=== PATIENT | male | born 1940 | race Caucasian/White ===

== ENCOUNTER 2021-11-16 09:43 | Emergency (ER) | payer MEDICARE, BC, SELFPAY ==
[2021-11-16 10:00] VITALS: BP 154/81; PULSE 72; RESP 18; TEMP 36.6; O2SAT 95; BMI 35.5
[2021-11-16 10:11] LABS: Appearance Urine Clear (Clear); Bilirubin Urine Negative (Negative); Blood Urine 3+ (Negative); Color Urine Yellow (Yellow); Glucose Urine Negative (Negative); Ketones Urine Negative (Negative); Leukocyte Esterase Urine 1+ (Negative); Nitrite Urine Negative (Negative); Protein Urine 1+ (Negative); Urobilinogen Urine 0.2 (0.2-1.0)
--- NOTE | 2021-11-16 10:33 | ED.MALEGU ---
HPI - Male Genitourinary General Chief complaint: Urogenital Problems, Male Stated complaint: Possible UTI Time Seen by Provider: 11/16/21 10:02 History of Present Illness HPI Narrative: 81yo male patient with h/o hypothyroidism, HTN, and CAD presents to the emergency department with 2 days of burning with urination, hematuria, and decreased volumes. Will he reports some associated pain at the end of voiding in his lower abdomen that is not reproducible with palpation. The patient denies history of frequent or recurrent urinary tract infections. He reports his last similar symptom was greater than 1 year prior. Patient denies any prostate related concerns complaints. The patient denies any constipation, abdominal pain, or nausea. Which he denies fever, chills, or sweats. He denies CVA tenderness bilaterally. Related Data Home Medications Medication Instructions Recorded Confirmed atorvastatin 10 mg tablet mg 11/16/21 clopidogrel 75 mg tablet mg 11/16/21 levothyroxine 88 mcg tablet mcg 11/16/21 lisinopril 10 mg tablet mg 11/16/21 Previous Rx's Medication Instructions Recorded cephalexin 500 mg capsule 500 mg PO Q8H #15 cap 11/16/21 Allergies Allergy/AdvReac Type Severity Reaction Status Date / Time No Known Drug Allergies Allergy Verified 11/16/21 10:00 Review of Systems Const: Denies: fever, chills, fatigue or malaise Cardio: Denies: chest pain, palpitations or shortness of breath with exertion Resp: Denies: shortness of breath or cough GI: Denies: abdominal pain, nausea, vomiting, diarrhea, constipation or bloating : Reports: painful urination, urinary frequency, urinary urgency, blood in urine and decreased urine ouput; Denies: penile discharge, change in urine stream, urinary hesitancy or urinary dribbling Integ/Breast: Denies: rash, itching or redness Endo: Denies: fatigue PFS PFS Medical History (Updated 11/16/21 @ 11:34 by Criselda Franklin DO) History of CVA (cerebrovascular accident) Family History (Updated 11/16/21 @ 10:53 by Criselda Franklin DO) Other Dementia Diabetes Social History Smoking Status: Never smoker Do you use any of these nicotine containing products: None How often do you have a drink containing alcohol: monthly or less How often do you have six or more drinks on one occasion: Never AUDIT-C Alcohol total score: 1 Non-prescribed substance use: denies use Exam Const: Vital Signs, click to edit/add: Vital Signs - 24 hr 11/16/21 10:00 Temperature 97.9 F Pulse Rate [Right Pulse Oximeter] 72 Respiratory Rate 18 Blood Pressure [Le ft Upper Arm] 154/81 H Pulse Oximetry 95 Documenting provider has reviewed patient's vital signs: yes Common normals: no apparent distress, oriented x3, no limitations, healthy appearing, alert and well nourished General appearance: cooperative, comfortable, well kempt and well developed; not in distress Nutritional appearance: obese Orientation/consciousness: Yes awake, Yes oriented to person, Yes oriented to place and Yes oriented to time Resp: Common normals: normal respiratory effort, no retractions, no use of accessory muscles and clear to auscultation bilaterally Effort & inspection: able to speak in complete sentences Auscultation: clear to auscultation bilaterally Cardio: Common normals: regular rate, regular rhythm, S1 normal heart sound, S2 normal heart sound, no gallops, no clicks and no murmurs Rate: regular rate Rhythm: regular rhythm Heart sounds: S1 normal and S2 normal GI: Common normals: Normal to inspection, nondistended, normoactive bowel sounds present (protuberant/obese) and soft to palpation Palpation: soft; non-tender : Common normals: no CVA tenderness Bladder/kidney exam: no CVA tenderness Back & Pelvis: Common normals: no CVA tenderness Extremity: Common normals: normal to inspection and full ROM Neuro: Common normals: oriented x3 Sensorium/orientation: awake, alert, oriented to person, oriented to place and oriented to time Psych: Appearance: grossly normal and well kempt Skin: Common normals: no rashes or lesions noted General skin exam: no rashes or lesions noted Course Vital Signs Vital signs: Initial Vital Signs Temperature 97.9 F 11/16/21 10:00 Temperature Source Temporal Artery Scan 11/16/21 10:00 Pulse Rate 72 11/16/21 10:00 Respiratory Rate 18 11/16/21 10:00 Blood Pressure 154/81 H 11/16/21 10:00 Blood Pressure Mean 105 11/16/21 10:00 Blood Pressure Position Sitting 11/16/21 10:00 Pulse Oximetry 95 11/16/21 10:00 Oxygen Delivery Method 11/16/21 10:00 Vital Signs Temperature 97.9 F 11/16/21 10:00 Pulse Rate 72 11/16/21 10:00 Respiratory Rate 18 11/16/21 10:00 Blood Pressure 154/81 H 11/16/21 10:00 Pulse Oximetry 95 11/16/21 10:00 Temperature 97.9 F 11/16/21 10:00 Pulse Rate 72 11/16/21 10:00 Respiratory Rate 18 11/16/21 10:00 Blood Pressure 154/81 H 11/16/21 10:00 Pulse Oximetry 95 11/16/21 10:00 MDM - Male Genitourinary MDM Narrative Medical decision making narrative: Kvng is an 81-year-old male patient presents emergency department with classic symptoms for JOSE CARLOS. The patient has had his urine taken for sample. In addition, labs were ordered, but haven't been drawn. Patient reports improvement in his initial presenting symptoms and now defers additional testing. Discussed limitations in work-up and need to return for reevaluation if symptoms do not improve with treatment. Patient's vital signs remained stable, and he is planned for discharge. Differential Diagnosis Differential diagnosis: Likely urinary tract infection, urethritis and prostatitis Medical Records Attestation: I reviewed the patient's medical records. Lab Data Attestation: I reviewed the patient's lab results. Labs: Lab Results 11/16/21 Range/Units 10:00 Urine Color Yellow (Yellow) Urine Appearance Clear (Clear) Urine pH 6.0 (5.0-8.5) Ur Specific [place] 1.010 (1.000-1.030) Urine Protein 1+ A (Negative) Urine Glucose (UA) Negative (Negative) Urine Ketones Negative (Negative) Urine Blood 3+ A (Negative) Urine Nitrite Negative (Negative) Urine Bilirubin Negative (Negative) Urine Urobilinogen 0.2 (0.2-1.0) Ur Leukocyte Esterase 1+ A (Negative) Urine RBC 50-100 A (0-2) Urine WBC >100 A (0-5) Ur Squamous Epith Cells Few (None-Few) Urine Bacteria Many A (None) Discharge Plan Discharge Clinical Impression: Urinary tract infection Patient Disposition: Home, Self-Care Condition: Improved Instructions: Urinary Tract Infection in Men (ED) Additional Instructions: Thank you for choosing [facility] for your care today. Wear loose fitted pants with cotton underwear. Allow perineum to air as tolerated, (ex. nothing at bedtime). Take antibiotic as prescribed. See orders. Consider cranberry juice or cranberry supplement to assist with symptom control and recurrent UTIs. Consider OTC AZO or Urogesic Blue to assist with symptoms. I recommend calling primary care for follow-up in the next 7-10 days. If new or worsening symptoms develop or you have any concerns in the meantime, please call your primary care clinic or return to the ER for re-evaluation. Activity Level: No Restrictions and Activity as Tolerated Discharge Diet: Heart Healthy (2 gm sodium, low fat) Prescriptions: New cephalexin 500 mg capsule 500 mg PO Q8H Qty: 15 0RF No Action atorvastatin 10 mg tablet 0RF Label Comments: TAKE 1 TABLET BY MOUTH EVERY DAY clopidogrel 75 mg tablet 0RF Label Comments: TAKE 1 TABLET BY MOUTH ONCE DAILY. levothyroxine 88 mcg tablet 0RF Label Comments: TAKE 1 TABLET BY MOUTH EVERY DAY lisinopril 10 mg tablet 0RF Label Comments: TAKE 1 TABLET BY MOUTH EVERY DAY Follow Up/Referrals: Provider,Not a Local [Primary Care Provider] - Stand Alone Forms: [employer] Info Instructions
[2021-11-16 11:00] LABS: Bacteria Urine Many; RBC Urine 50-100 (0-2); Squamous Epithelial Cell Urine Few (None-Few); WBC Urine >100 (0-5)
== END 2021-11-16 11:56 | disposition home or self-care (01) ==
PROVIDERS: Emergency Provider Family Medicine
DX: N39.0 Urinary tract infection, site not specified (principal)
CPT/HCPCS: 80048; 81001; 85025; 87086; 87186; 99282; 99283; 99284

== ENCOUNTER 2022-12-11 04:02 | Emergency (ER) | payer MEDICARE, BC, SELFPAY ==
[2022-12-11 04:18] VITALS: BP 174/77; PULSE 87; RESP 16; TEMP 36.6; O2SAT 98; BMI 31.2
--- NOTE | 2022-12-11 04:34 | ED.GENADULT ---
HPI - General Adult General Time Seen by Provider: 04:34 Date Seen: 12/11/22 Chief complaint: Extremity Pain/Injury, Lower Stated complaint: right leg numbness Time Seen by Provider: 12/11/22 04:06 Source: patient Mode of arrival: ambulatory Limitations: no limitations History of Present Illness HPI narrative: Patient is an 82-year-old male history of hypothyroidism, obstructive sleep apnea, TIA 45 years ago presenting to the emergency department for right leg numbness. He states around noon started having numbness to the anterior portion was right leg going from his right hip down to his foot. States it is only on the anterior portion of the leg. Denies any numbness to the sides or the back of the leg. Also has some mild low back pain and right hip pain that he states feels like morning stiffness. States the numbness started before the pain. Denies any bladder incontinence or retention, saddle anesthesia, fevers, chills. States his previous TIA he he had somewhat similar right leg numbness but also his right arm numbness and slurred speech. He states this feels different compared to that. He is having an achiness to his right thigh blood was keeping him up at night and that is why he came into the emergency department. He denies any history of blood clots. He notes his right leg has not had any swelling. Denies weakness, chest pain, shortness of breath, headache, vision changes, lightheadedness, dizziness, ataxia, hearing changes. Related Data Home Medications Medication Instructions Recorded Confirmed atorvastatin 10 mg tablet mg 11/16/21 clopidogrel 75 mg tablet mg 11/16/21 levothyroxine 88 mcg tablet mcg 11/16/21 lisinopril 10 mg tablet mg 11/16/21 Previous Rx's Medication Instructions Recorded cephalexin 500 mg capsule 500 mg PO Q8H #15 caps 11/16/21 Allergies Allergy/AdvReac Type Severity Reaction Status Date / Time No Known Drug Allergies Allergy Verified 11/16/21 10:00 Review of Systems Status of ROS: Reports: 10 or more systems reviewed and unremarkable except as noted in History and below [facility] Medical History (Updated 12/11/22 @ 05:39 by Eron Morton DO) History of CVA (cerebrovascular accident) ?Z86.73 - Personal history of transient ischemic attack (TIA), and cerebral infarction without residual deficits (ICD-10) Family History (Updated 11/16/21 @ 10:53 by Criselda Franklin DO) Other Dementia Diabetes Social History Smoking Status: Never smoker Do you use any of these nicotine containing products: None How often do you have a drink containing alcohol: monthly or less How often do you have six or more drinks on one occasion: Never AUDIT-C Alcohol total score: 1 Non-prescribed substance use: denies use Exam Narrative: Exam Narrative: Const: Well-nourished, Well-developed, in mild distress Eyes: PERRL, no conjunctival injection, and symmetrical lids ENMT: Atraumatic external nose and ears. Moist mucous membranes. Neck: Symmetric, trachea midline, No thyromegaly. CVS: RRR, No murmurs or gallops. Peripheral pulses 2+ and equal in all extremities RESP: Unlabored respiratory effort. Clear to auscultation bilaterally. GI: Nontender/Nondistended, No rebound or guarding. MSK:Extremities w/o deformity, Normal Active ROM Skin: Warm, Dry. No rashes or lesions. Neuro: Normal Muscle tone, Cranial nerves 2-12 grossly intact, normal [id number], normal [id number], normal gait, normal strength 5/5 upper lower extremities bilaterally, decreased sensation to the anterior portion of the right leg [place] sensation in other extremities, normal rapid alternating movements. Psych: Awake, Alert, & Oriented x3. Appropriate mood and affect. Const: Vital Signs, click to edit/add: Vital Signs - 24 hr 12/11/22 04:18 Temperature 97.9 F Pulse Rate [Left P ulse Oximeter] 87 Respiratory Rate 16 Blood Pressure [Ri ght Upper Arm] 174/77 H Pulse Oximetry 98 Oxygen Delivery Me thod Room Air Course Vital Signs Vital signs: Initial Vital Signs Temperature 97.9 F 12/11/22 04:18 Temperature Source Temporal Artery Scan 12/11/22 04:18 Pulse Rate 87 12/11/22 04:18 Respiratory Rate 16 12/11/22 04:18 Blood Pressure 174/77 H 12/11/22 04:18 Blood Pressure Mean 109 H 12/11/22 04:18 Blood Pressure Position Sitting 12/11/22 04:18 Pulse Oximetry 98 12/11/22 04:18 Oxygen Delivery Method Room Air 12/11/22 04:18 Vital Signs Temperature 97.9 F 12/11/22 04:18 Pulse Rate 87 12/11/22 04:18 Respiratory Rate 16 12/11/22 04:18 Blood Pressure 174/77 H 12/11/22 04:18 Pulse Oximetry 98 12/11/22 04:18 Oxygen Delivery Method Room Air 12/11/22 04:18 Temperature 97.9 F 12/11/22 04:18 Pulse Rate 87 12/11/22 04:18 Respiratory Rate 16 12/11/22 04:18 Blood Pressure 174/77 H 12/11/22 04:18 Pulse Oximetry 98 12/11/22 04:18 Oxygen Delivery Method Room Air 12/11/22 04:18 Medical Decision Making MDM Narrative Medical decision making narrative: Patient is an 82-year-old male presenting for right leg numbness. His own in the anterior aspect of the right leg. Appears to follow a dermatome. He is also having associated back/hip/thigh pain that started after the numbness. He states he had numbness sort of similar in the past but at that time also had right arm numbness and slurred speech and had a TIA. He is not on any anticoagulants and has no known arrhythmias. No signs of blood clots at this time in that leg. The right legs actually smaller compared to the left leg. One hundred notably this is a T&A for DVT at this time. Most likely it is a radiculopathy causing the symptoms. Patient was offered Toradol for pain but states he can take it because he is getting cataract surgery in 2 days and was told not have any NSAIDs for 48 hours. A small dose of morphine was given for the right leg discomfort. Patient be discharged home they agree to this plan. Patient was given strict return precautions if he develops any focal neurological changes Discharge Plan Discharge Clinical Impression: Numbness Radiculopathy Qualifiers: Spinal region: unspecified Qualified Code(s): M54.10 - Radiculopathy, site unspecified Patient Disposition: Home, Self-Care Condition: Stable Instructions: Paresthesia (ED) Additional Instructions: Follow-up with the primary care provider. Return for new or worsening symptoms. If he develops any worsening numbness, or in developing weakness or other neurological issues please return to the emergency department immediately Prescriptions: No Action atorvastatin 10 mg tablet Patient Comments: TAKE 1 TABLET BY MOUTH EVERY DAY clopidogrel 75 mg tablet Patient Comments: TAKE 1 TABLET BY MOUTH ONCE DAILY. levothyroxine 88 mcg tablet Patient Comments: TAKE 1 TABLET BY MOUTH EVERY DAY lisinopril 10 mg tablet Patient Comments: TAKE 1 TABLET BY MOUTH EVERY DAY cephalexin 500 mg capsule 500 mg PO Q8H Qty: 15 0RF Follow Up/Referrals: Provider,Not a Local [Referring] - Stand Alone Forms: [facility] Info Instructions
[2022-12-11] MEDS: MORPHINE 4 MG/ML INJ 2 MG IM (05:37)
== END 2022-12-11 05:58 | disposition home or self-care (01) ==
PROVIDERS: Emergency Provider Student in an Organized Health Care Education/Training Program; PCP Family Medicine
DX: R20.0 Anesthesia of skin (principal); M54.10 Radiculopathy, site unspecified
CPT/HCPCS: 96372; 99282; 99283; J2270

== ENCOUNTER 2022-12-12 09:44 | Day surgery (SDC) | payer MEDICARE, BC, SELFPAY ==
[2022-12-12] MEDS: TETRACAINE 0.5% OPHTH 1 DROP EYE-LEFT ×2 (10:00→10:05)
[2022-12-12] MEDS: KETOROLAC OPHTH 0.5% 1 DROP EYE-LEFT ×3 (10:00→10:10)
[2022-12-12 10:09] VITALS: BP 167/79; PULSE 44; RESP 16; TEMP 36.3; O2SAT 98
--- NOTE | 2022-12-12 10:09 | W.ANESCHARGE ---
Anesthesia Charges Start Date/Time Anesthesia Start Date: 12/12/22 Anesthesia Start Time: 10:35 Stop Date/Time Anesthesia Stop Date: 12/12/22 Anesthesia Stop Time: 11:11 Summary Extremes of Age - Over 70 or under 1: MDA
[2022-12-12 10:10] VITALS: BMI 36.3
[2022-12-12] MEDS: SODIUM CHLORIDE 0.9 % (FLUSH) 10 ML SYRINGE IVF (10:24)
--- NOTE | 2022-12-12 10:28 | SUR.PREOP ---
The eye drops brought by the patient (Ketorolac and Prednisolone) are examined and I have determined they are labeled by the patient's pharmacy for this patient as prescribed by the surgeon. The bottles are intact, recently obtained and appear to be correct.jaydon davidson
[2022-12-12] MEDS: TETRACAINE 0.5% OPHTH 2 DROP EYE-LEFT (10:38)
--- NOTE | 2022-12-12 10:39 | W.ANESCHARGE ---
Anesthesia Charges Start Date/Time Anesthesia Start Date: 12/12/22 Anesthesia Start Time: 10:35 Stop Date/Time Anesthesia Stop Date: 12/12/22 Anesthesia Stop Time: 11:11 Summary Extremes of Age - Over 70 or under 1: OPERATIONS SUPPORT COORDINATOR
[2022-12-12] MEDS: BALANCED SALT IRRIG SOLN 15 ML EYE-LEFT (10:43)
[2022-12-12 11:22] VITALS: BP 156/75; PULSE 45; RESP 16; TEMP 36.6; O2SAT 98
--- NOTE | 2022-12-12 11:36 | SUR.PHASEII ---
The eye drops brought by the patient (Ketorolac and Prednisolone) are examined and I have determined they are labeled by the patient's pharmacy for this patient as prescribed by the surgeon. The bottles are intact, recently obtained and appear to be correct.
--- NOTE | 2022-12-12 12:02 | P.OPTPRC_ITS ---
Procedure Note Date of procedure: 12/12/22 Will [facility] bill your pro fee for this procedure?: Yes Procedure Description: SURGEON: Omayra Craven MD PREOPERATIVE DIAGNOSIS: Nuclear sclerotic cataract, left eye. POSTOPERATIVE DIAGNOSIS: Nuclear sclerotic cataract, left eye. NAME OF OPERATION: Phacoemulsification of cataract with posterior chamber intraocular lens implantation in the left eye. ANESTHESIA: Topical. ESTIMATED BLOOD LOSS: Less than 2 cc. COMPLICATIONS: None. PATHOLOGY SPECIMEN: None. INDICATIONS: See consult note for details. The risks, benefits and alternatives of the procedure were explained to the patient, who elected to proceed and sign ed informed consent to do so. PROCEDURE: The patient was brought to the pre-holding area where the left eye was identified as the operative eye. I placed my initials above this eye. The patient received eye drops consisting of 0.5% tetracaine, 1% tropicamide, 10% phenylephrine, and 0.5% ketorolac. The patient was then brought to the operating room where the left eye was again identified as the operative eye. The eye was prepped with Betadine and draped in the usual sterile ophthalmic fashion. A #15 super-sharp blade was used to create a paracentesis site. 1% non-preserved intracameral lidocaine was injected into the anterior chamber. Endocoat was injected into the anterior chamber. A 2.4 mm keratome was used to create a three-plane self-sealing incision 1 mm anterior to the temporal limbus. A cystotome was used to create an anterior capsular leaflet. The Utrata forceps were used to extend this to form a continuous curvilinear capsulorrhexis. Hydrodissection was performed. There was mild iris prolapse at the incision that resolved without need for repositioning.The cataract was removed with phacoemulsification using the [id number] technique. The irrigation and aspiration tip was used to remove the remaining cortex. Healon was injected into the capsular bag. An JOHN [id number] intraocular lens of 21.5 diopters was injected into the capsular bag. The irrigation and aspiration tip was used to remove the remaining viscoelastic. Balanced salt solution on a cannula was used to hydrate the wound, and the wound was found to be watertight. The pupil was noted to be round. DISPOSITION: The patient was taken to the recovery room and discharged to home in stable condition. The patient was instructed to call me or go to the emergency department with any sudden change, including dramatic loss of vision, severe pain in the eye or eyebrow region, nausea, or vomiting. The patient will follow up in the clinic tomorrow morning.
== END 2022-12-12 11:36 | disposition home or self-care (01) ==
LOC: OR 09:46
PROVIDERS: PCP Family Medicine; Visit Provider Ophthalmology
PROC: (CPT 66984; principal; 2022-12-12 09:45)
DX: H25.12 Age-related nuclear cataract, left eye (principal)
CPT/HCPCS: 66984; 142; 99100; A9270; J2250; J3010; V2632

== ENCOUNTER 2022-12-26 07:27 | Day surgery (SDC) | payer MEDICARE, BC, SELFPAY ==
[2022-12-26] MEDS: KETOROLAC OPHTH 0.5% 1 DROP EYE-RIGHT ×3 (07:30→07:40)
[2022-12-26] MEDS: TETRACAINE 0.5% OPHTH 1 DROP EYE-RIGHT ×2 (07:30→07:35)
--- NOTE | 2022-12-26 07:42 | SUR.PREOP ---
The eye drops brought by the patient (Ketorolac, Oflaxacin and Prednisolone) are examined and I have determined they are labeled by the patient's pharmacy for this patient as prescribed by the surgeon. The bottles are intact, recently obtained and appear to be correct.
[2022-12-26 07:44] VITALS: BP 155/82; PULSE 49; RESP 16; TEMP 36.7; O2SAT 96; BMI 34.4
[2022-12-26] MEDS: SODIUM CHLORIDE 0.9 % (FLUSH) 10 ML SYRINGE IVF (07:59)
[2022-12-26] MEDS: TETRACAINE 0.5% OPHTH 2 DROP EYE-RIGHT (08:39)
[2022-12-26] MEDS: BALANCED SALT IRRIG SOLN 15 ML EYE-RIGHT (08:43)
[2022-12-26 09:05] VITALS: BP 155/77; PULSE 43; RESP 16; TEMP 36.4; O2SAT 96
--- NOTE | 2022-12-26 09:07 | W.ANESCHARGE ---
Anesthesia Charges Start Date/Time Anesthesia Start Date: 12/26/22 Anesthesia Start Time: 08:37 Stop Date/Time Anesthesia Stop Date: 12/26/22 Anesthesia Stop Time: 09:10
--- NOTE | 2022-12-26 09:15 | W.PM.OPTPROC ---
Procedure Note Date of procedure: 12/26/22 Will [facility] bill your pro fee for this procedure?: Yes Procedure Description: SURGEON: Omayra Craven MD PREOPERATIVE DIAGNOSIS: Nuclear sclerotic cataract, right eye. POSTOPERATIVE DIAGNOSIS: Nuclear sclerotic cataract, right eye. NAME OF OPERATION: Phacoemulsification of cataract with posterior chamber intraocular lens implantation in the right eye. ANESTHESIA: Topical. ESTIMATED BLOOD LOSS: Less than 2 cc. COMPLICATIONS: None. PATHOLOGY SPECIMEN: None. INDICATIONS: See consult note for details. The risks, benefits and alternatives of the procedure were explained to the patient, who elected to proceed and signed informed consent to do so. PROCEDURE: The patient was brought to the pre-holding area where the right eye was identified as the operative eye. I placed my initials above this eye. The patient received eye drops consisting of 0.5% tetracaine, 1% tropicamide, 10% phenylephrine, and 0.5% ketorolac. The patient was then brought to the operating room where the right eye was again identified as the operative eye. The eye was prepped with Betadine and draped in the usual sterile ophthalmic fashion. A #15 super-sharp blade was used to create a paracentesis site. 1% non-preserved intracameral lidocaine was injected into the anterior chamber. Endocoat was injected into the anterior chamber. A 2.4 mm keratome was used to create a three-plane self-sealing incision 1 mm anterior to the temporal limbus. A cystotome was used to create an anterior capsular leaflet. The Utrata forceps were used to extend this to form a continuous curvilinear capsulorrhexis. Hydrodissection was performed. The cataract was removed with phacoemulsification using the [id number] technique. The irrigation and aspiration tip was used to remove the remaining cortex. Healon was injected into the capsular bag. An JOHN [id number] intraocular lens of 23.0 diopters was injected into the capsular bag. The irrigation and aspiration tip was used to remove the remaining viscoelastic. Balanced salt solution on a cannula was used to hydrate the wound, and the wound was found to be watertight. The pupil was noted to be round. DISPOSITION: The patient was taken to the recovery room and discharged to home in stable condition. The patient was instructed to call me or go to the emergency department with any sudden change, including dramatic loss of vision, severe pain in the eye or eyebrow region, nausea, or vomiting. The patient will follow up in the clinic tomorrow morning.
== END 2022-12-26 09:44 | disposition home or self-care (01) ==
PROVIDERS: PCP Family Medicine; Visit Provider Ophthalmology
PROC: (CPT 66984; principal; 2022-12-26 07:30)
DX: H25.11 Age-related nuclear cataract, right eye (principal)
CPT/HCPCS: 66984; 00142; A9270; J2250; J3010; V2632

== ENCOUNTER 2023-11-23 09:43 | Emergency (ER) | payer MEDICARE, BC, SELFPAY ==
[2023-11-23 09:46] VITALS: BP 143/67; PULSE 63; RESP 18; TEMP 36.6; O2SAT 96; BMI 33.0
--- NOTE | 2023-11-23 10:04 | ED_ITS ---
HPI - General Adult General Chief complaint: Fall/Minor Trauma Stated complaint: bad fall, left arm injured, shoulder pain/knee Time Seen by Provider: 11/23/23 09:47 History of Present Illness HPI narrative: Pt had a fall last night in front of a restaurant, lost balance. Abrasion to lower left arm. Bystander helped bandage him up. Hit his left shoulder, ROM intact. Bumped head. No LOC. Swelling in right knee from previous fall. Pt is on Plavix. States he recently had his blood pressure medication changed, and has been more off balance since, has fallen more frequently. Pt ambulated into the ER. 83-year-old man presenting to the emergency department after recent falls. Did fall last night at a restaurant reporting losing his balance. Bumped his head in this fall. He is thinking that maybe it has become more unsteady with recent changes of medication. He feels that overall has been more unsteady lately. Does have some swelling in his right knee reported but this is not from this most recent fall. Has in this latest fall also sustained abrasion to his left arm. No nausea. No particular headache. No neck or back pain. No chest pain shortness of breath or sensation of heart arrhythmia the does have a history of paroxysmal supraventricular tachycardia. Does take Plavix with history of CVA. Was ambulatory into this emergency department. Related Data Home Medications ?Medication ?Instructions ?Recorded ?Confirmed atorvastatin 10 mg tablet 10 mg PO DAILY 11/16/21 11/23/23 clopidogrel 75 mg tablet 75 mg PO DAILY 11/16/21 11/23/23 levothyroxine 88 mcg tablet 88 mcg PO DAILY 11/16/21 11/23/23 triamcinolone acetonide 0.1 % 1 applic topical TID 12/11/22 12/12/22 topical cream losartan 100 1 tab PO DAILY 11/23/23 11/23/23 mg-hydrochlorothiazide 12.5 mg tablet Allergies Allergy/AdvReac Type Severity Reaction Status Date / Time No Known Drug Allergies Allergy Verified 11/23/23 09:54 Review of Systems Status of ROS: Reports: 6 or more systems reviewed and unremarkable except as noted in History and below [facility] Medical History Paroxysmal SVT (supraventricular tachycardia) ?I47.1 - Supraventricular tachycardia (ICD-10) Stage 3a chronic kidney disease (CKD) ?N18.31 - Chronic kidney disease, stage 3a (ICD-10) Hypertension ?I10 - Essential (primary) hypertension (ICD-10) Adenomatous colon polyp ?D12.6 - Benign neoplasm of colon, unspecified (ICD-10) Eczema ?L30.9 - Dermatitis, unspecified (ICD-10) History of CVA (cerebrovascular accident) ?Z86.73 - Personal history of transient ischemic attack (TIA), and cerebral infarction without residual deficits (ICD-10) Surgical History History of arthroscopy of shoulder ?Z98.890 - Other specified postprocedural states (ICD-10) H/O hemorrhoidectomy ?Z98.890 - Other specified postprocedural states (ICD-10) Family History Other Dementia Diabetes Social History Smoking Status: Never smoker Do you use any of these nicotine containing products: None How often do you have a drink containing alcohol: monthly or less Alcohol type: beer How often do you have six or more drinks on one occasion: Never AUDIT-C Alcohol total score: 1 Non-prescribed substance use: denies use Caffeine: Yes Exam Narrative: Exam Narrative: Pleasant. NAD. Skin is warm and dry. I do not see indication of notable head injury. No swelling. Cranial nerves 2-12 intact. Neck is supple nontender. Back nontender. Is breathing easily. No pain to palpation over the clavicles. Has good range of motion in his shoulder though sore generally in his right shoulder. I do not see swelling or erythema here but he is tender somewhat over the AC joint though I do not appreciate a defect here. With further evaluation of tater cuff he is having good strength to resisted external and internal rotation. Empty can testing is what elicits most soreness. Abdomen is protuberant soft and nontender. Mild erythema over right greater than left knee. Left forearm with irregular skin tear about 4 cm in maximal diameter. There is some darkening of tissue at the edge. Const: Vital Signs, click to edit/add: Vital Signs - 24 hr 11/23/23 09:46 Temperature 97.8 F Pulse Rate [Right Pulse Oximeter] 63 Respiratory Rate 18 Blood Pressure [Ri ght Upper Arm] 143/67 H Pulse Oximetry 96 Oxygen Delivery Me thod Room Air Documenting provider has reviewed patient's vital signs: yes Course Vital Signs Vital signs: Initial Vital Signs Temperature 97.8 F 11/23/23 09:46 Temperature Source Temporal Artery Scan 11/23/23 09:46 Pulse Rate 63 11/23/23 09:46 Pulse Rhythm Regular 11/23/23 09:46 Respiratory Rate 18 11/23/23 09:46 Blood Pressure 143/67 H 11/23/23 09:46 Blood Pressure Mean 92 11/23/23 09:46 Pulse Oximetry 96 11/23/23 09:46 Oxygen Delivery Method Room Air 11/23/23 09:46 Vital Signs Temperature 97.8 F 11/23/23 09:46 Pulse Rate 63 11/23/23 09:46 Respiratory Rate 18 11/23/23 09:46 Blood Pressure 143/67 H 11/23/23 09:46 Pulse Oximetry 96 11/23/23 09:46 Oxygen Delivery Method Room Air 11/23/23 09:46 Temperature 97.8 F 11/23/23 09:46 Pulse Rate 63 11/23/23 09:46 Respiratory Rate 18 11/23/23 09:46 Blood Pressure 143/67 H 11/23/23 09:46 Pulse Oximetry 96 11/23/23 09:46 Oxygen Delivery Method Room Air 11/23/23 09:46 Medical Decision Making MDM Narrative Medical decision making narrative: We discussed potential head imaging. He describes minimal impact. Is otherwise doing well. Preference is not to do. Did do a shoulder x-ray however. Would look for avulsion injury or excessive distraction at the AC joint. Over-read by me does not reveal any acute abnormalities. Osteoarthritic changes. Radiology over-read below Technique: Left shoulder, 3 views. Comparison: None. Findings/Impression: Bones: Alignment is normal. No displaced fractures or bone lesions. Chronic changes around the greater tuberosity. Joint spaces: Moderate acromioclavicular and glenohumeral degenerative changes. Soft tissues: Unremarkable. Did return to improve placement of the skin tear. Cleansed further with Hibiclens and water solution and Shur-Clens. Trimmed away small amount of nonviable tissue. Discussed options for dressing and ultimately settled on Tegaderm. I think there is improved approximation here. I would have concerns of further worsening balance/mobility with use of an arm sling. Further he does not appear to have that significant amount of pain in the right shoulder. See patient discharge plan for further discussion Discharge Plan Discharge Clinical Impression: Shoulder sprain, Skin tear Patient Disposition: Home w/ Parent or Adult Condition: Improved Additional Instructions: Hopefully this Tegaderm can stay on at least for the majority of the week. That should give your wound some time to form some new tissue. Can trim away the edges as they peel up. Keep generally covered if you like but not critical. If comes all the way off in the next couple days, would use antibiotic ointment and nonstick Telfa pad for a few days. Watch for spreading redness after 2 days, purulent drainage, marked increase in swelling or pain. See handout for exercises for your shoulder. It seems you might have irritated your supraspinatus muscle? But I do think it is important to keep your shoulder mobile. If this isn't improved after a week, would be re-evaluated. Prescriptions: No Action atorvastatin 10 mg tablet 10 mg PO DAILY Patient Comments: TAKE 1 TABLET BY MOUTH EVERY DAY clopidogrel 75 mg tablet 75 mg PO DAILY Patient Comments: TAKE 1 TABLET BY MOUTH ONCE DAILY. levothyroxine 88 mcg tablet 88 mcg PO DAILY Patient Comments: TAKE 1 TABLET BY MOUTH EVERY DAY triamcinolone acetonide 0.1 % cream 1 applic topical TID losartan-hydrochlorothiazide 100-12.5 mg tablet 1 tab PO DAILY Follow Up/Referrals: Aria Rojas MD [Primary Care Provider] - Stand Alone Forms: [facility] Info Instructions
--- NOTE | 2023-11-23 10:37 | CRLHL7_ITS ---
For Patients: As a result of the Cures Act, medical imaging exams and procedure reports are released immediately into your electronic medical record. You may view this report before your referring provider. If you have questions, please contact your health care provider. Indication: Trauma. Technique: Left shoulder, 3 views. Comparison: None. Findings/Impression: Bones: Alignment is normal. No displaced fractures or bone lesions. Chronic changes around the greater tuberosity. Joint spaces: Moderate acromioclavicular and glenohumeral degenerative changes. Soft tissues: Unremarkable. Dictated by Oswaldo Parra MD @ 11/23/2023 11:02:39 AM (Electronically Signed)
--- OUTSIDE RECORDS SUMMARY | 2023-11-23 10:44 | XMS_ITS | Clinical Summary ---
Author Organization [facility] Address [place], [place] [address] Care Team Providers Care Audit Partner Name Role Phone Aria Rojas MD Primary Care Provider [phone] Allergies No known active allergies Medications Medication Sig Dispensed Refills Start Date End Date Status durable medical equipment (DME)Indications:E levated blood pressure reading without diagnosis of hypertension Blood pressure cuff and machine. 1 Each 03/29/2021 Active triamcinolone (ARISTOCORT; KENALOG) 0.1 % creamIndications:E czema, unspecified type APPLY TOPICALLY TO AFFECTED AREA (S) 3 TIMES A DAY 80 g 3 01/04/2023 Active cetirizine (ZYRTEC) 10 mg tablet Take 10 mg by mouth once daily. 06/08/2023 Active atorvastatin (LIPITOR) 10 mg tabletIndications: Cerebral infarction, unspecified mechanism (HC) Take 1 Tablet (10 mg) by mouth once daily. 100 Tablet 3 08/08/2023 Active clopidogreL (PLAVIX) 75 mg tabletIndications: Cerebral infarction, unspecified mechanism (HC) Take 1 Tablet (75 mg) by mouth once daily. 100 Tablet 3 08/08/2023 Active losartan-hydrochlo rothiazide (HYZAAR) 100-12.5 mg tabletIndications: Primary hypertension Take 1 Tablet by mouth once daily. 100 Tablet 3 10/11/2023 Active levothyroxine (SYNTHROID) 100 mcg tabletIndications: Hypothyroidism, unspecified type TAKE 1 TABLET BY MOUTH ONCE DAILY. 30 Tablet 11/07/2023 Active levothyroxine (SYNTHROID) 100 mcg tabletIndications: Hypothyroidism, unspecified type TAKE 1 TABLET BY MOUTH ONCE DAILY. 30 Tablet 10/07/2023 Discontinued Active Problems Problem Noted Date Diagnosed Date Atrial flutter, unspecified type 08/08/2023 Paroxysmal SVT (supraventricular tachycardia) HTN (hypertension) 11/02/2021 Stage 3a chronic kidney disease 11/02/2021 MADIE (obstructive sleep apnea) 10/06/2020 Hypothyroidism (acquired) 01/26/2016 Cerebral infarction 03/22/2015 Adenomatous colon polyp 02/02/2014 Overview: Colonoscopy 01/2014 polyp repeat in 5 years Colonoscopy 07/2020 polyp, repeat in 7 years Eczema 03/18/2013 Encounters Date Type Department Care Team Description 11/21/2023 2:20 PM CDT Nurse/Clinic Staff Only [address] [address] Blood Pressure (119/58) 11/21/2023 2:00 PM CDT Orders Only [address] [address] [place], [place] [facility] 11/21/2023 Travel 11/06/2023 Refill [facility] [address] [place] [address] Aria Rojas MD Refill Request (Levothyroxine) 11/04/2023 Refill [facility] [address] [place] [address] Aria Rojas MD Refill Request (Levothyroxine) 10/11/2023 1:05 PM CDT Office Visit [facility] [address] [place] [address] Aria Rojas MD Musculoskeletal Problem (groin pain/first time was sharp on left side -3weeks ago/second time was dull across the whole- couple days after/really mild a third time); Back Pain (some lower back pain sometimes in the morning) 10/11/2023 Travel 10/09/2023 9:30 AM CDT Office Visit [facility] [address] [place] [phone] Gio Jo, AuD Hearing Problem 10/09/2023 Travel 10/06/2023 Refill [facility] [address] [place] [address] Aria Rojas MD Refill Request (Levothyroxine) 09/05/2023 9:45 AM CDT Orders Only [facility] [address] [place] [address] [facility] [place] [facility] 09/05/2023 9:15 AM CDT Nurse/Clinic Staff Only [facility] [address] [place] [address] Blood Pressure (BLOOD PRESSURE CHECK ) 09/05/2023 Travel 09/02/2023 Refill [facility] [address] [place] [address] Aria Rojas MD Refill Request (Levothyroxine) from Last 3 Months Immunizations Name Administration Dates Next Due COVID-19 vaccine (Germin8 30mcg/0.3mL) PF, MDV 06/11/2020,05/20/2020 DT (Age < 7 years) 04/17/2007 Influenza Virus, Unspecified 02/27/2013 Influenza, High-dose Inactivated 01/26/2016,08/2014,01/22/2014 Influenza, High-dose Quadriv alent Inactivated 04/12/2023,02/02/2022,02/02/2021,2019 Influenza, IIV3 (Age >=3 years) 03/18/2013,01/06,04/17/2007 Influenza, Inactivated IIV3 (Age 65+ Years) Preserv Free 01/02/2019,12/31/2017,04/04/2017 Pneumococcal Poly,23-Valent (Pneumovax) 02/27/2013,04/17/2007 Pneumococcal conj 13-Valent (Prevnar 13) 11/01/2014 Td, Preservative Free (age > = 7 Years) 04/17/2007 Tdap 01/07/2012 Zoster (Shingrix-RZV, recombinant) 10/09/2017,04 /02/2018 Family History Medical History Relation Name Comments Diabetes Brother Other Father dementia Relation Name Status Comments Brother Father Social History Tobacco Use Types Packs/Day Years Used Date Smoking Tobacco: Former Cigarettes 1 17 0 08/07/1950 - 08/06/1968 Smokeless Tobacco: Never Tobacco Cessation:Counseling Given: Yes Alcohol Use Standard Drinks/Week Comments Yes 6 (1 standard drink = 0.6 oz pur e alcohol) moderate PHQ-2 Answer Date Recorded PHQ-2 TOTAL SCORE 0 08/22/2023 Social Connections Answer Date Recorded Frequency of Communication with Friends and Fami ly 0 12/13/2022 Financial Resource Strain Answer Date R ecorded Difficulty of Paying Living Expenses 3 12/13/2022 Difficulty of Paying Living Expenses Not on file 12/13/2022 Food Insecurity Answer Date Recorded Worried About Running Out of Food in the Last Ye ar 1 12/13/2022 Transportation Needs Answer Date Record ed Lack of Transportation (Medical) 1 12/13/2022 Housing Stability Answer Date Recorded Unable to Pay for Housing in the Last Year 1 12/13/2022 Sex and Gender Information Value Date Recorded Sex Assigned at Not on file Gender Identity Not on file Sexual Orientation Not on file Obstetrics History Last Filed Vital Signs Vital Sign Reading Time Taken Comments Blood Pressure 119/58 11/21/2023 2:20 PM CDT Pulse 55 11/21/2023 2:20 PM CDT Temperature 36.4 ??C (97.6 ??F) 10/11/2023 1:02 PM CD T Respiratory Rate - - Oxygen Saturation 96% 10/11/2023 1:02 PM CDT Inhaled Oxygen Concentration - - Weight 113.4 kg (250 lb) 10/11/2023 1:02 PM CDT Height 181 cm (5' 11.26) 08/22/2023 10:02 AM CD T Body Mass Index 34.61 08/22/2023 10:02 AM CDT Plan of Treatment Health Maintenance Due Date Last Done Comments Tetanus booster 01/06/2022 01/07/2012, 12/28, 04/17/2007 COVID-19 vaccine series ( season) 2023 04/12/2023, 02/02/2022, 08/12/2021, Additional history exists Influenza for age 65+ 12/29/2023 04/12/2023 , 02/02/2022, 02/02/2021, Additional history exists BMI (ht and wt on same day) for age 18+ 08/21/2024 08/22/2023, 08/13/2022, 03/29/2021, Additional history exists Depression screening for age 12+ 08/21/2024 08/22/2023, 12/13/2022, 03/29/2021, Additional history exists Medicare Wellness for age 65+ 08/22/2024, 03/29/2021, 03/16/2020, Additional history exists Tdap Completed 01/07/2012 Pneumococcal series for age 65+ Completed 11/01/2014, 02/27/2013, 04/17/2007 Zoster (shingles) series for age 50+ Completed 10/09/2017, 08/07/2017 Procedures Procedure Name Priority Date/Time Associated Diagnosis Comments TSH Routine 11/21/2023 2:11 PM CDT Hypothyroidism, unspecified type POTASSIUM Routine 11/21/2023 2:11 PM CDT Primary hypertension CREATININE Routine 11/21/2023 2:11 PM CDT Primary hypertension POTASSIUM Routine 09/05/2023 9:28 AM CDT Primary hypertension CREATININE Routine 09/05/2023 9:28 AM CDT Primary hypertension from Last 3 Months Results * TSH (11/21/2023 2:11 PM CDT) TSH 2.87 0.27 - 4.20 uIU/mL 11/22/2023 4:15 AM CDT [facility] Blood BLOOD SPECIMEN / Unknown Venipuncture / Unknown 11/21/2023 2:11 PM CDT 11/21/2023 2:11 PM CDT [facility] - 11/22/2023 4:15 AM CDT In Adults, TSH values between 5.00 and 10.00 uIU/ml do not necessarily indicate the presence of Hypothyroidism. Correlation with clinical findings such as presence of goiter and/or Thyroperoxidase (TPO) Antibody may be helpful. For more information please refer to JULIA 2004; 291: 228-238. Aria Rojas MD CHEMISTRY Performing Organization Address [facility] Co de Phone Number [facility] [address] [place] [id number], [place] * POTASSIUM (11/21/2023 2:11 PM CDT) Only the most recent of2 resultswithin the time period is included. POTASSIUM 4.8 3.5 - 5.1 mmol/L 11/22/2023 4:15 AM CDT [facility] Blood BLOOD SPECIMEN / Unknown Venipuncture / Unknown 11/21/2023 2:11 PM CDT 11/21/2023 2:11 PM CDT Aria Rojas MD CHEMISTRY Performing Organization Address [facility] Phone Number [facility] [address] [place] [address], [place] * (ABNORMAL) CREATININE (11/21/2023 2:11 PM CDT) Only the most recent of2 resultswithin the time period is included. eGFR 63(L) >90 mL/min/1.7 3m2 11/22/2023 4:15 AM CDT [facility] Comment:As of 2021, eG FR is calculated by the CKD-EPI creatinine equation without race adjustment. ??eGFR can be influenced by muscle mass, exercise, and diet. ??The reported eGFR is an estimation only and is only applicable if the renal function is stable. CREATININE 1.16 0.70 - 1.20 mg/dL 11/22/2023 4:15 AM CDT [facility] Blood BLOOD SPECIMEN / Unknown Venipuncture / Unknown 11/21/2023 2:11 PM CDT 11/21/2023 2:11 PM CDT Aria Rojas MD CHEMISTRY [employer] [facility] 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
== END 2023-11-23 11:43 | disposition home or self-care (01) ==
PROVIDERS: Emergency Provider Family Medicine; PCP Family Medicine
DX: S43.402A Unspecified sprain of left shoulder joint, initial encounter (principal); S51.812A Laceration without foreign body of left forearm, initial encounter; W19.XXXA Unspecified fall, initial encounter
CPT/HCPCS: 73030; 99284

== ENCOUNTER 2024-11-24 12:45 | Outpatient (RCR) | payer MEDICARE, BC, SELFPAY | END 2025-02-02 14:23 | disposition home or self-care (01) | PROVIDERS: PCP Family Medicine; Visit Provider Family Medicine | DX: R26.81 Unsteadiness on feet (principal); Z51.89 Encounter for other specified aftercare | CPT/HCPCS: 97110; 97162 ==